=== PATIENT | female | born 1940 | race Caucasian/White ===

== ENCOUNTER 2018-04-30 08:52 | Day surgery (SDC) | payer MEDICARE, SELFPAY ==
[2018-04-23 13:56] VITALS: BMI 31.9
[2018-04-30] VITALS (9 sets, daily range): BP systolic 122–138; BP diastolic 69–93; PULSE 60–71; RESP 14–20; TEMP 36.1–36.6; O2SAT 92–97; BMI 31.9
[2018-04-30] MEDS: ACETAMINOPHEN 325 MG TABLET 975 MG PO (09:38)
[2018-04-30] MEDS: LACTATED RINGERS 1,000 ML 42 ML IV (09:40)
--- NOTE | 2018-04-30 10:24 | PM.PREOP ---
Pre-operative Note Interval Note Pre-op Check: History & Physical Reviewed by Physician, Exam Performed and History & Physical exam performed today
[2018-04-30] MEDS: CEFAZOLIN 2 GM/100 ML FROZ.PIGGY IV (10:30)
--- NOTE | 2018-04-30 10:51 | SUR.OPER ---
Prone on spine table, head in foam head support, padded chest and pelvic supports, gel pad at knees, lower legs supported by pillows; nipples, genitalia and toes free of pressure, arms secured on foam padded arm boards at <90 degrees abduction. Tape over blanket at thigh secured to table.
[2018-04-30] MEDS: BUPIVACAINE 0.25% W/ EPI 50 ML VIAL INJ (11:00)
[2018-04-30] MEDS: methylPREDNISolone acet DEPO 40 MG/ML VIAL INJ (11:06)
--- NOTE | 2018-04-30 11:06 | DI.RAD.S_ITS ---
PROCEDURE: XR LUMBAR SPINE 2-3V INDICATIONS: L4-5 LAMINECTOMY TECHNIQUE: 2 views of the lumbar spine were acquired. COMPARISON: [facility], XR LUMBAR SPINE 2 OR 3 VIEWS, 02/03/2018, 11:53. FINDINGS: Bones: AP and lateral spot images of the lumbosacral junction shows a metallic blade over the posterior L4-5 disc level a left. Soft tissues: Overlying bowel gas pattern is normal. No suspicious soft tissue calcifications. IMPRESSION: Intraoperative localization imaging at the L4-5 disc level. Dictated by: Bean Haley M.D. on 04/30/2018 at 11:28 Approved by: Bean Haley M.D. on 04/30/2018 at 11:30
--- NOTE | 2018-04-30 11:19 | P.OP_ITS ---
Operative Date/Time/Diagnoses - Date of procedure: 04/30/18 Time of procedure: 10:16 Pre-op diagnosis: 1. L4-5 spinal stenosis 2. 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 L4-5 laminectomy with partial facetecomies 2. Utilization of microsurgical technique and operating microscope Same procedure as scheduled: Yes Indications: Patient has been having chronic back pain and worsening lumbar radiculopathy. Patient failed multiple conservative management with worsening pain weakness and numbness in her lower extremity. Patient has been having difficulty performing activity of daily living. After discussing risks benefits of treatment options, patient elected proceed with surgery. Surgeon: Ishmael Beth Sas Etl Developer: Cherise Zimmer Click Yes if Unassisted: No Anesthesia Type: General Operative Notes Closure Type: primary Specimen(s): none sent Estimated Blood Loss (mL): 10 Blood products transfused: none Procedure in detail: Patient was seen in the preoperative area. Risks and benefits of the surgery was discussed with the patient. Informed consent was obtained from the patient and placed in the chart. Surgical site was marked. Patient was taken to the operative room. General anesthesia was administered. Prophylactic antibiotic was given to the patient less than 30 min before the incision was made. Patient was placed into a prone position on the David table. Patient's back was then prepped and draped in the sterile fashion. Time- out was performed at this time. Using AP and lateral C-arm imaging the interval between L4-5 was identified and marked on patient's back. A 1 inch incision 1 in from midline was made on the left side. The fascia was incised in line with skin incision. Globus MARS retractors was placed inside the incision and docked onto the L4 lamina. Using microsurgical technique and operating microscope, a L4 laminectomy was performed using a Kerrison rongeur. Liagamentum flavum was resected at the site of the laminectomy. Either side of the dura was exposed. Bilateral partial facetcomies was performed to further decompress the lateral recess. After the laminectomy was completed, the area medial lateral superior and inferior to the area of the laminectomy was inspected and explored using a micro curette. No other impinging structure was identified. The wound was then irrigated with sterile normal saline. 40 mg Depo-Medrol was placed into the epidural space. The deep fascia was closed with 1-0 Vicryl. The subcutaneous tissue was closed with 2-0 Vicryl. The skin was closed with 4- 0 Monocryl. Patient tolerated the procedure well. There were no complications. Patient was transferred recovery room in stable condition. Complications: none Condition: stable Disposition: same day surgery Plan for aftercare: discharge to home
== END 2018-04-30 12:35 | disposition home or self-care (01) ==
PROVIDERS: Visit Provider Orthopaedic Surgery Orthopaedic Surgery of the Spine
PROC: (CPT 63047; principal; 2018-04-30 10:45)
DX: M47.26 Other spondylosis with radiculopathy, lumbar region (principal); M48.061 Spinal stenosis, lumbar region without neurogenic claudication; E03.9 Hypothyroidism, unspecified; E66.9 Obesity, unspecified; I10 Essential (primary) hypertension; Z68.31 Body mass index [BMI] 31.0-31.9, adult; Z87.891 Personal history of nicotine dependence
CPT/HCPCS: 63047; 72100; 76001; J0690; J1030; J1100; J2250; J2405; J2704; J3010